=== PATIENT | female | born 1980 | race Caucasian/White ===

== ENCOUNTER 2016-11-19 10:35 | Emergency (ER) | payer MEDICAID, OTHER ==
[~2016-11-19] VITALS: Ht 175.3 cm; Wt 68.0 kg
[~2016-11-19 10:35] MED LIST: AEROMIS4 INH; ALBU8I INH; BUPR-197 PO; PRED20 PO; VENTAER INH
[2016-11-19 10:37] VITALS: BP 182/97; PULSE 85; RESP 28; TEMP 98.4; O2SAT 97
[2016-11-19] MEDS ORDERED: IPRAAER INH (11:07)
[2016-11-19] MEDS ORDERED: ALBU0.63 NEB (11:07)
[2016-11-19] MEDS ORDERED: SODIUM CHLORIDE 0.9% FLUSH 10 ML FLUSH IVF PRN (11:15)
[2016-11-19] MEDS ORDERED: methylPREDNISolone SOD SUCC 125 MG/2 ML VIAL IVP ONE (11:15)
[2016-11-19] MEDS: RESP: ALBUTEROL 2.5 MG/IPRATROPIUM 0.5 MG NEB (SCH) INH (11:19)
[2016-11-19 11:25] VITALS: O2SAT 95
--- NOTE | 2016-11-19 12:55 | PD ---
HPI Chief Complaint: Respiratory Distress Time Seen by Provider: 11:07 Travel History International Travel<30 days: No Contact w/Intl Traveler<30days: No Traveled to known affect area: No History of Present Illness HPI 36yo F with PMH of asthma presents to the ED with c/o sob since last night. States she is visiting her mother and she has carpet. Feels like her asthma but took her nebulizer and still sob today. Pt denies any fever, cough, chest pain, n/v, abdominal pain, focal weakness or numbness. PFSH Past Medical History Asthma: Yes Autoimmune Disease: No Blood Disorders: No Anxiety: No Depression: No Heart Rhythm Problems: No Cancer: No Cardiovascular Problems: No High Cholesterol: No Chest Pain: No Congestive Heart Failure: No Cerebrovascular Accident: No Diabetes: No Diminished Hearing: No Endocrine: No GERD: No Genitourinary: No Headaches: No Hepatitis: No Hiatal Hernia: No Hypertension: No Kidney Stones: No Musculoskeletal: Yes (LOWER BACK PAIN(SCIATIC NERVE)) Neurologic: No Psychiatric: No Respiratory: Yes Myocardial Infarction: No Renal Failure: No Seizures: No Sickle Cell Disease: No Thyroid Disease: No Ulcer: No ?: Unknown LMP: 11/16/2016 : 4 Para: 3 Tubal Ligation: Yes Past Surgical History Abdominal Surgery: No AICD: No Cardiac Surgery: No Ear Surgery: No Endocrine Surgery: No Eye Surgery: No Genitourinary Surgery: No Gynecologic Surgery: Yes Neurologic Surgery: No Oral Surgery: No Pacemaker: No Thoracic Surgery: No Social History Alcohol Use: Yes (RARELY) Tobacco Use: No (LESS THAN 1/2 PPD ) Substance Use: Yes (MARIJUANA A FEW DAYS AGO) Allergies-Medications (Allergen,Severity, Reaction): Coded Allergies: Penicillin (Verified Allergy, Severe, HIVES, 11/19/16) Reported Meds & Prescriptions Reported Meds & Active Scripts Active Ventolin Hfa 18 GM Inh (Albuterol Sulfate) 90 Mcg/Act Aer 2 Puff INH Q4H PRN Deltasone (Prednisone) 20 Mg Tab 20 Mg PO BID 5 Days Reported Albuterol Neb (Albuterol Sulfate) 0.63 Mg/3 Ml Neb Unknown Dose NEB DIRECTED PRN Combivent Respimat Inh (Ipratropium-Albuterol Inh) 20-100 Fdc/Act Aero 1 Puff INH QID Review of Systems Except as stated in HPI: all other systems reviewed are Neg Physical Exam Narrative GENERAL: 36yo F in mild distress. SKIN: Focused skin assessment warm/dry. HEAD: Atraumatic. Normocephalic. EYES: Pupils equal and round. No scleral icterus. No injection or drainage. ENT: No nasal bleeding or discharge. Mucous membranes pink and moist. NECK: Trachea midline. No JVD. CARDIOVASCULAR: Regular rate and rhythm. No murmur appreciated. RESPIRATORY: + accessory muscle use. Diffuse expiratory wheezing bilaterally. GASTROINTESTINAL: Abdomen soft, non-tender, nondistended. MUSCULOSKELETAL: No obvious deformities. No clubbing. No cyanosis. No edema. NEUROLOGICAL: Awake and alert. No obvious cranial nerve deficits. Motor grossly within normal limits. Normal speech. PSYCHIATRIC: Appropriate mood and affect; insight and judgment normal. Data Data Last Documented VS Vital Signs Date Time Temp Pulse Resp B/P Pulse Ox O2 Delivery O2 Flow Rate FiO2 11/19/16 11:25 95 21 11/19/16 10:37 98.4 85 28 182/97 Orders Iv Access Insert/Monitor (11/19/16 11:11) Ecg Monitoring (11/19/16 11:11) Oximetry (11/19/16 11:11) Oxygen Administration (11/19/16 11:11) Sodium Chloride 0.9% Flush (Ns Flush) (11/19/16 11:15) Methylprednisolone So Succ Inj (Solumedr (11/19/16 11:15) Albuterol-Ipratropium Neb (Duoneb Neb) (11/19/16 11:15) Chest, Single Ap (11/19/16 ) Albuterol Concentrated Neb (Albuterol Co (11/19/16 13:00) Albuterol Neb (Albuterol Neb) (11/19/16 13:19) Albuterol Neb (Albuterol Neb) (11/19/16 13:19) Electrocardiogram (11/19/16 ) MDM Medical Decision Making Medical Screen Exam Complete: Yes Emergency Medical Condition: Yes Interpretation(s) EKG: NSR 84bpm. Normal axis. No ST segment elevation or depression. Last Impressions Chest X-Ray 11/19/16 0000 Signed Impressions: Service Date/Time: Saturday, November 19, 2016 13:07 - CONCLUSION: No acute disease. Alex Acharya MD Differential Diagnosis Asthma exacerbation vs. pneumonia Narrative Course 36yo F with sob since last night. Impression is asthma exacerbation. Pt has never been intubated or hospitalized for asthma. Pt was tachypneic with mild suprasternal retractions. Pt given methylprednisolone 125mg IV and duonebs x3. Pt reevaluated at bedside and feels better. Still wheezing bilaterally. Respiratory rate improved. Speaking in complete sentences. CXR showed no acute disease. Pt given another albuterol neb. Reevaluated at bedside and states no longer feel sob. Still with some wheezing on exam. Pt is well appearing and return precautions given. Diagnosis Primary Impression: Asthma exacerbation Patient Instructions: General Instructions Departure Forms: Tests/Procedures Additional Instructions: Please follow up with your PMD in 3-7 days. Return to the ED if symptoms worsen. Med/Other Pt SpecificInfo: Prescription(s) given Scripts Albuterol 18 GM Inh (Ventolin Hfa 18 GM Inh)90 Mcg/Act Aer2 Puff INH Q4H PRN ( SHORTNESS OF BREATH) #1 INHALER Ref 0 Prov:Katie Locke DO 11/19/16 Prednisone (Deltasone)20 Mg Tab20 Mg PO BID 5 Days Ref 0 Prov:Katie Locke DO 11/19/16 Disposition: 01 DISCHARGE HOME Condition: Stable Katie Locke DO Nov 19, 2016 12:55
[2016-11-19] MEDS ORDERED: RESP: ALBUTEROL CONC 2.5 MG/0.5 ML NEB NEB ONE (13:00)
[2016-11-19] MEDS ORDERED: RESP: ALBUTEROL 2.5 MG/3 ML NEB (SCH) ONE (13:19)
[2016-11-19] MEDS ORDERED: RESP: ALBUTEROL 2.5 MG/3 ML NEB (PRN) ONE (13:19)
--- NOTE | 2016-11-19 13:43 | RADRPT ---
EXAM DATE/TIME: 11/19/2016 13:07 [facility] COMPARISON: No previous studies available for comparison. INDICATIONS : Shortness of breath. MEDICAL HISTORY : Asthma. SURGICAL HISTORY : None. ENCOUNTER: Initial ACUITY: 1 day PAIN SCORE: 5/10 LOCATION: Bilateral chest FINDINGS: A single view of the chest demonstrates the lungs to be symmetrically aerated without evidence of mas s, infiltrate or effusion. The cardiomediastinal contours are unremarkable. Osseous structures are intact. CONCLUSION: No acute disease. Alex Acharya MD on November 19, 2016 at 13:40 Board Certified Radiologist. This report was verified electronically.
[2016-11-19] MEDS ORDERED: PRED-503 PO (13:57)
[2016-11-19] MEDS ORDERED: VENTAER INH (13:57)
--- NOTE | 2016-11-20 08:41 | EKG ---
Date Performed: 11/19/2016 Time Performed: 10:52:19 PTAGE: 36 years EKG: Sinus rhythm NORMAL ECG INTERPRETATION BASED ON A DEFAULT AGE OF 40 YEARS PREVIOUS TRACING : 02/13/2015 17.12 DOCTOR: Ariel Remy Interpretating Date/Time 11/20/2016 08:35:26
== END 2016-11-19 14:15 | disposition home or self-care (01) ==
LOC: NEPC 10:35
DX: J45.901 Unspecified asthma with (acute) exacerbation (principal); F17.200 Nicotine dependence, unspecified, uncomplicated; Z88.0 Allergy status to penicillin
CPT/HCPCS: 71010; 93005; 94640; 94664; 96374; 99285; J2930; J7611; J7613